=== PATIENT | male | born 1985 | race American Indian/Alaskan Native ===

== ENCOUNTER 2017-08-28 21:43 | Emergency (ER) | payer SELFPAY ==
[2017-08-28 22:47] LABS: Hematocrit 46.9 % (35.5-45.6); Hemoglobin 15.6 gm/dl (11.8-15.2); Mean Corpuscular HGB Conc 33 % (32-34); Mean Corpuscular Hemoglobin 32 pg (28-32); Mean Corpuscular Volume 96 fl (84-94); Platelet Count 299 K/mm3 (140-440); Red Blood Count 4.91 M/mm3 (3.65-5.03); Red Cell Distribution Width 13.6 % (13.2-15.2); White Blood Count 11.1 K/mm3 (4.5-11.0)
[2017-08-28 22:55] LABS: Bilirubin,Urine NEG (Negative); Blood,Urine SM (Negative); Ketones,Urine NEG (Negative); Leukocyte Esterase,Urine NEG (Negative); Mucus,Urine FEW /HPF; Nitrite,Urine NEG (Negative); Protein,Urine <15 mg/dL mg/dL (Negative); Urobilinogen,Urine < 2.0 mg/dL (<2.0)
[2017-08-28 23:06] LABS: Anion Gap 18 mmol/L; BUN/Creatinine Ratio 17; Blood Urea Nitrogen 12 mg/dL (9-20); Calcium 9.3 mg/dL (8.4-10.2); Carbon Dioxide 26 mmol/L (22-30); Chloride 100.7 mmol/L (98-107); Glucose 107 mg/dL (75-100); Lipase 54 units/L (13-60); Potassium 4.7 mmol/L (3.6-5.0); Sodium 140 mmol/L (137-145)
[2017-08-28 23:12] LABS: Basophils % (Manual) 0 % (0.0-1.8); Blastocytes % (Manual) 0 %; Eosinophils % (Manual) 0 % (0.0-4.3)
[2017-08-28 23:13] LABS: Anisocytosis Few; Diff Status Complete; Poikilocytosis Few
--- NOTE | 2017-08-29 03:48 | Emergency Department Report ---
HPI - General Chief Complaint: Abdominal Pain Time Seen by Provider: 08/29/17 03:34 - HPI HPI: Patient is a 31-year-old male presents to ED complaining of abdominal pain after eating spicy [place] chicken from a restaurant around 6 PM earlier today. Patient states he had one episode of vomiting has resolved now. Patient states he still has some abdominal pain that has decreased in intensity. Patient describes the pain as throbbing, crampy and aching in nature and localized to his lower abdominal region. Patient denies any radiation of the pain anywhere else He denies sick in medication or allergic to any meds. He denies fevers/chills/ nausea ED Past Medical Hx - Past Medical History Previous Medical History?: No - Surgical History Past Surgical History?: No - Medications Home Medications: Home Medications Medication Instructions Recorded Confirmed Last Taken Type Acetaminophen [Tylenol Extra 500 mg PO Q6H #30 tablet 08/29/17 Unknown Rx Strength] Famotidine [Pepcid] 20 mg PO BID #30 tablet 08/29/17 Unknown Rx Ondansetron [Zofran Odt] 4 mg PO Q8H #30 tab.rapdis 08/29/17 Unknown Rx ED Review of Systems ROS: Stated complaint: ABD PAIN Other details as noted in HPI Constitutional: denies: chills, fever Eyes: denies: eye pain, eye discharge, vision change ENT: denies: ear pain, throat pain Respiratory: denies: cough, shortness of breath, wheezing Cardiovascular: denies: chest pain, palpitations Endocrine: no symptoms reported Gastrointestinal: denies: abdominal pain, nausea, diarrhea Genitourinary: denies: urgency, dysuria Musculoskeletal: denies: back pain, joint swelling, arthralgia Skin: denies: rash, lesions Neurological: denies: headache, weakness, paresthesias Psychiatric: denies: anxiety, depression Hematological/Lymphatic: denies: easy bleeding, easy bruising Physical Exam - Physical Exam Vital Signs: Vital Signs 08/28/17 08/29/17 22:14 02:25 Temperature 99 F 98.7 F Pulse Rate 83 79 Respiratory 20 18 Rate Blood Pressure 140/80 139/83 O2 Sat by Pulse 99 100 Oximetry Physical Exam: GENERAL: Alert and oriented x3, no apparent distress, Normal Gait, atraumatic. HEAD: Head is normocephalic and a-traumatic. MOUTH:Mouth is well hydrated and without lesions. Tonsils nonerythematous or swollen, Uvula midline, Tongue not elevated. Mucous membranes are moist. Posterior pharynx clear, no exudate or lesions. Patent airways. NECK: Supple. Non edematous, No carotid bruits. No lymphadenopathy or thyromegaly. No C-spine tenderness LUNGS: Symetrical with respiration, No wheezing, no rales or crackles, CTAB. HEART: S1, S2 present, regular rate and rhythm without murmur, no rubs, no gallops. Non tender to palpation ABDOMEN: No organomegaly was noted,Positive bowel sounds, soft, and non- distended. Mild tenderness to palpation of the left middle quadrant. Nontender to palpation on all other Quadrants, NO CVA tenderness. BACK: Full range of motion, no spinal tenderness, nontender to palpation. SKIN: Warm and dry, No lesions, No ulceration or induration present. ED Course Vital Signs 08/28/17 08/29/17 22:14 02:25 Temperature 99 F 98.7 F Pulse Rate 83 79 Respiratory 20 18 Rate Blood Pressure 140/80 139/83 O2 Sat by Pulse 99 100 Oximetry ED Medical Decision Making - Lab Data Result diagrams: 08/28/17 22:40 08/28/17 22:40 Laboratory Last Values WBC 11.1 K/mm3 (4.5-11.0) H 08/28/17 22:40 RBC 4.91 M/mm3 (3.65-5.03) 08/28/17 22:40 Hgb 15.6 gm/dl (11.8-15.2) H 08/28/17 22:40 Hct 46.9 % (35.5-45.6) H 08/28/17 22:40 MCV 96 fl (84-94) H 08/28/17 22:40 MCH 32 pg (28-32) 08/28/17 22:40 MCHC 33 % (32-34) 08/28/17 22:40 RDW 13.6 % (13.2-15.2) 08/28/17 22:40 Plt Count 299 K/mm3 (140-440) 08/28/17 22:40 Add Manual Diff Complete 08/28/17 22:40 Total Counted 100 08/28/17 22:40 Seg Neuts % (Manual) 92.0 % (40.0-70.0) H 08/28/17 22:40 Band Neutrophils % 0 % 08/28/17 22:40 Lymphocytes % (Manual) 6.0 % (13.4-35.0) L 08/28/17 22:40 Reactive Lymphs % (Man) 0 % 08/28/17 22:40 Monocytes % (Manual) 2.0 % (0.0-7.3) 08/28/17 22:40 Eosinophils % (Manual) 0 % (0.0-4.3) 08/28/17 22:40 Basophils % (Manual) 0 % (0.0-1.8) 08/28/17 22:40 Metamyelocytes % 0 % 08/28/17 22:40 Myelocytes % 0 % 08/28/17 22:40 Promyelocytes % 0 % 08/28/17 22:40 Blast Cells % 0 % 08/28/17 22:40 Nucleated RBC % Not Reportable 08/28/17 22:40 Seg Neutrophils # Man 10.2 K/mm3 (1.8-7.7) H 08/28/17 22:40 Band Neutrophils # 0.0 K/mm3 08/28/17 22:40 Lymphocytes # (Manual) 0.7 K/mm3 (1.2-5.4) L 08/28/17 22:40 Abs React Lymphs (Man) 0.0 K/mm3 08/28/17 22:40 Monocytes # (Manual) 0.2 K/mm3 (0.0-0.8) 08/28/17 22:40 Eosinophils # (Manual) 0.0 K/mm3 (0.0-0.4) 08/28/17 22:40 Basophils # (Manual) 0.0 K/mm3 (0.0-0.1) 08/28/17 22:40 Metamyelocytes # 0.0 K/mm3 08/28/17 22:40 Myelocytes # 0.0 K/mm3 08/28/17 22:40 Promyelocytes # 0.0 K/mm3 08/28/17 22:40 Blast Cells # 0.0 K/mm3 08/28/17 22:40 WBC Morphology Not Reportable 08/28/17 22:40 Hypersegmented Neuts Not Reportable 08/28/17 22:40 Hyposegmented Neuts Not Reportable 08/28/17 22:40 Hypogranular Neuts Not Reportable 08/28/17 22:40 Smudge Cells Not Reportable 08/28/17 22:40 Toxic Granulation Not Reportable 08/28/17 22:40 Toxic Vacuolation Not Reportable 08/28/17 22:40 Dohle Bodies Not Reportable 08/28/17 22:40 Pelger-Huet Anomaly Not Reportable 08/28/17 22:40 Jas Rods Not Reportable 08/28/17 22:40 Platelet Estimate Appears normal 08/28/17 22:40 Clumped Platelets Not Reportable 08/28/17 22:40 Plt Clumps, EDTA Not Reportable 08/28/17 22:40 Large Platelets Not Reportable 08/28/17 22:40 Giant Platelets Not Reportable 08/28/17 22:40 Platelet Satelliting Not Reportable 08/28/17 22:40 Plt Morphology Comment Not Reportable 08/28/17 22:40 RBC Morphology Not Reportable 08/28/17 22:40 Dimorphic RBCs Not Reportable 08/28/17 22:40 Polychromasia Not Reportable 08/28/17 22:40 Hypochromasia Not Reportable 08/28/17 22:40 Poikilocytosis Few 08/28/17 22:40 Anisocytosis Few 08/28/17 22:40 Microcytosis Not Reportable 08/28/17 22:40 Macrocytosis Not Reportable 08/28/17 22:40 Spherocytes Not Reportable 08/28/17 22:40 Pappenheimer Bodies Not Reportable 08/28/17 22:40 Sickle Cells Not Reportable 08/28/17 22:40 Target Cells Not Reportable 08/28/17 22:40 Tear Drop Cells Not Reportable 08/28/17 22:40 Ovalocytes Not Reportable 08/28/17 22:40 Helmet Cells Not Reportable 08/28/17 22:40 [place] Bodies Not Reportable 08/28/17 22:40 [place] Rings Not Reportable 08/28/17 22:40 [place] Cells Not Reportable 08/28/17 22:40 Bite Cells Not Reportable 08/28/17 22:40 Crenated Cell Not Reportable 08/28/17 22:40 Elliptocytes Not Reportable 08/28/17 22:40 Acanthocytes (Spur) Not Reportable 08/28/17 22:40 Rouleaux Not Reportable 08/28/17 22:40 Hemoglobin C Crystals Not Reportable 08/28/17 22:40 Schistocytes Not Reportable 08/28/17 22:40 Malaria parasites Not Reportable 08/28/17 22:40 [place] Bodies Not Reportable 08/28/17 22:40 Hem Pathologist Commnt No 08/28/17 22:40 Sodium 140 mmol/L (137-145) 08/28/17 22:40 Potassium 4.7 mmol/L (3.6-5.0) 08/28/17 22:40 Chloride 100.7 mmol/L (98-107) 08/28/17 22:40 Carbon Dioxide 26 mmol/L (22-30) 08/28/17 22:40 Anion Gap 18 mmol/L 08/28/17 22:40 BUN 12 mg/dL (9-20) 08/28/17 22:40 Creatinine 0.7 mg/dL (0.8-1.5) L 08/28/17 22:40 Estimated GFR > 60 ml/min 08/28/17 22:40 BUN/Creatinine Ratio 17 % 08/28/17 22:40 Glucose 107 mg/dL (75-100) H 08/28/17 22:40 Calcium 9.3 mg/dL (8.4-10.2) 08/28/17 22:40 Amylase 120 units/L (27-131) 08/28/17 22:40 Lipase 54 units/L (13-60) 08/28/17 22:40 Urine Color Straw (Yellow) 08/28/17 Unknown Urine Turbidity Clear (Clear) 08/28/17 Unknown Urine pH 7.0 (5.0-7.0) 08/28/17 Unknown Ur Specific [place] 1.011 (1.003-1.030) 08/28/17 Unknown Urine Protein <15 mg/dl mg/dL (Negative) 08/28/17 Unknown Urine Glucose (UA) Neg mg/dL (Negative) 08/28/17 Unknown Urine Ketones Neg mg/dL (Negative) 08/28/17 Unknown Urine Blood Sm (Negative) 08/28/17 Unknown Urine Nitrite Neg (Negative) 08/28/17 Unknown Urine Bilirubin Neg (Negative) 08/28/17 Unknown Urine Urobilinogen < 2.0 mg/dL (<2.0) 08/28/17 Unknown Ur Leukocyte Esterase Neg (Negative) 08/28/17 Unknown Urine WBC (Auto) 1.0 /HPF (0.0-6.0) 08/28/17 Unknown Urine RBC (Auto) 3.0 /HPF (0.0-6.0) 08/28/17 Unknown Urine Mucus Few /HPF 08/28/17 Unknown - Radiology Data Radiology results: report reviewed, image reviewed Very small umbilical hernia containing omental fat, hernia measuring 15 medially meters in dimension no acute process in the abdomen and pelvis - Medical Decision Making 31-year-old male presents with gastroenteritis/food poisoning ED course: CBC, CMP, urinalysis and CT abdomen and pelvis completed. Patient was able to eat peanut butter and jelly sandwich, applesauce and juice in the ED. Patient reports feeling better no nausea symptoms of vomiting after eating. Discussed results of CT scan with the patient. Discussed with patient to follow up with primary care physician. Discussed the patient that if symptoms worsen to return to ED immediately. Vital signs are normal, patient is sleeping comfortably in the ED bed Patient is in no acute distress. Critical care attestation.: If time is entered above; I have spent that time in minutes in the direct care of this critically ill patient, excluding procedure time. ED Disposition Clinical Impression: Gastroenteritis due to food toxin Disposition: DC-01 TO HOME OR SELFCARE Is pt being admited?: No Does the pt Need Aspirin: No Condition: Stable Instructions: Soft Diet (ED), Gastroenteritis (ED), Food Poisoning (ED) Additional Instructions: Follow instructions as given symptoms worsen or new symptoms arise please return to ED. Soft diet recommended. No spicy foods Prescriptions: Acetaminophen [Tylenol Extra Strength] 500 mg PO Q6H #30 tablet Famotidine [Pepcid] 20 mg PO BID #30 tablet Ondansetron [Zofran Odt] 4 mg PO Q8H #30 tab.rapdis Referrals: PRIMARY CARE, [Primary Care Provider] - 3-5 Days [facility] [Outside] - 3-5 Days [facility] [Outside] - 3-5 Days [facility] [Outside] - 3-5 Days [facility] [Outside] - 3-5 Days Forms: Accompanied Note, Work/School Release Form(ED) Time of Disposition: 06:21
[2017-08-29] MEDS ORDERED: PEPCID PO ONE (03:56)
[2017-08-29] MEDS ORDERED: MOTRIN PO ONE (03:56)
[2017-08-29 05:26] VITALS: BP 134/79
--- NOTE | 2017-08-29 07:32 | Cat Scan Report ---
FINAL REPORT EXAM: CT ABD AND PELVIS WO CONTRAST HISTORY: umbilical pain TECHNIQUE: Routine axial imaging was obtained of the abdomen and pelvis without oral or IV contrast with sagittal and coronal reconstructions. FINDINGS: The lung bases are clear. Pleural fluid is not seen. The liver, gallbladder, pancreas, spleen, and adrenal glands appear normal. The kidneys show no evidence of stones or hydronephrosis. The bowel loops are normal in caliber and course. There is a very small umbilical hernia measuring 15 millimeters in dimension. The hernia contains only omental fat. The appendix appears normal. There is no evidence of free fluid or adenopathy. In the pelvis the prostate gland and bladder appear normal. The skeletal structures are well-maintained. IMPRESSION: Very small umbilical hernia containing omental fat. No acute process in the abdomen and pelvis.
== END 2017-08-29 06:28 | disposition home or self-care (01) ==
LOC: ED 21:43
DX: A05.9 Bacterial foodborne intoxication, unspecified (principal)
CPT/HCPCS: 36415; 74176; 80048; 81001; 82150; 83690; 85007; 85025; 99284

== ENCOUNTER 2017-12-23 06:42 | Emergency (ER) | payer SELFPAY ==
[2017-12-23 07:19] VITALS: BP 116/78
[2017-12-23] MEDS ORDERED: FIORICET PO ONE (08:52)
--- NOTE | 2017-12-23 09:50 | Emergency Department Report ---
HPI - General Chief Complaint: Eye Problems Time Seen by Provider: 12/23/17 08:29 - HPI HPI: Patient is a 32-year-old male with no prominent medical history presents to ED complaining of left eye twitch intermittently for the past 2 months. Patient also states he developed a chin rash on his lower lip area yesterday. Patient denies any injury, taken the medication, and allergies. He states sometimes his dictation in the left side causing some mild left migraine headache. ED Past Medical Hx - Past Medical History Hx Asthma: Yes - Medications Home Medications: Home Medications Medication Instructions Recorded Confirmed Last Taken Type Acetaminophen [Tylenol Extra 500 mg PO Q6H #30 tablet 08/29/17 Unknown Rx Strength] Famotidine [Pepcid] 20 mg PO BID #30 tablet 08/29/17 Unknown Rx Ondansetron [Zofran Odt] 4 mg PO Q8H #30 tab.rapdis 08/29/17 Unknown Rx Acyclovir [Zovirax] 1 applic TP TID #1 tube 12/23/17 Unknown Rx Prochlorperazine [Compazine] 10 mg PO Q8HR #30 tablet 12/23/17 Unknown Rx diphenhydrAMINE [Benadryl CAP] 25 mg PO QHS #20 capsule 12/23/17 Unknown Rx ED Review of Systems ROS: Stated complaint: LEFT EYE PAIN Other details as noted in HPI Constitutional: denies: chills, fever Eyes: denies: eye pain, eye discharge, vision change ENT: denies: ear pain, throat pain Respiratory: denies: cough, shortness of breath, wheezing Cardiovascular: denies: chest pain, palpitations Endocrine: no symptoms reported Gastrointestinal: denies: abdominal pain, nausea, diarrhea Genitourinary: denies: urgency, dysuria Musculoskeletal: denies: back pain, joint swelling, arthralgia Skin: denies: rash, lesions Neurological: denies: headache, weakness, paresthesias Psychiatric: denies: anxiety, depression Hematological/Lymphatic: denies: easy bleeding, easy bruising Physical Exam - Physical Exam Vital Signs: Vital Signs 12/23/17 07:16 Temperature 98.2 F Pulse Rate 78 Respiratory 14 Rate Blood Pressure 116/78 O2 Sat by Pulse 96 Oximetry Physical Exam: GENERAL: Alert and oriented x3, no apparent distress, Normal Gait, atraumatic. HEAD: Head is normocephalic and a-traumatic. EYE: Nonedematous, no lesions, no conjunctivitis noted, EEOM intact bilaterally , PERRLA MOUTH:Mouth is well hydrated and without lesions. Tonsils nonerythematous or swollen, Uvula midline, Tongue not elevated. Mucous membranes are moist. Posterior pharynx clear, no exudate or lesions. Patent airways. Raised, bumpy- like lesions on lower lip left sided LUNGS: Symetrical with respiration, No wheezing, no rales or crackles, CTAB. HEART: S1, S2 present, regular rate and rhythm without murmur, no rubs, no gallops. Non tender to palpation EXTREMITIES/MUSCULOSKELETAL: No cyanosis, clubbing, rash, lesions or edema. Full ROM bilaterally. NEUROLOGIC: The patient is cooperative with no focal neurologic deficits. Normal speech. Normal sensation in bilateral upper and lower extremities, No loss of sensation, SKIN: Warm and dry, No lesions, No ulceration or induration present. ED Course Vital Signs 12/23/17 07:16 Temperature 98.2 F Pulse Rate 78 Respiratory 14 Rate Blood Pressure 116/78 O2 Sat by Pulse 96 Oximetry ED Medical Decision Making - Medical Decision Making 32-year-old male presents with cold sores to the lip ED course: Patient received Fioricet and Benadryl for headache and itching Discussed the patient to follow-up with neurology as referred his eye twitching or headaches persist Vital signs are stable patient is in no acute distress Discussed the patient to follow up with his regular physician or as referred. Discussed with take and use medication as prescribed. I discussed the patient if any worsening symptoms or new onset of symptoms to return to ED immediately Patient has no neurologic deficit. He is neurologically intact. Critical care attestation.: If time is entered above; I have spent that time in minutes in the direct care of this critically ill patient, excluding procedure time. ED Disposition Clinical Impression: Cold sore, Eye muscle twitches Disposition: DC-01 TO HOME OR SELFCARE Is pt being admited?: No Does the pt Need Aspirin: No Condition: Stable Instructions: Acute Headache (ED), Ocular Migraine (ED) Additional Instructions: Make sure to follow up with the primary care physician as discussed. Take all your medications as you've been prescribed. Follow-up with neurology as discussed his headache persist or arts which in persist If you have any worsening symptoms or develop new symptoms please return to ED immediately. Prescriptions: diphenhydrAMINE [Benadryl CAP] 25 mg PO QHS #20 capsule Acyclovir [Zovirax] 1 applic TP TID #1 tube Prochlorperazine [Compazine] 10 mg PO Q8HR #30 tablet Referrals: PRIMARY CAREMD [Primary Care Provider] - 3-5 Days [facility] [Outside] - 3-5 Days [facility] [Outside] - 3-5 Days [facility] [Outside] - 3-5 Days SOFIA BARILLAS MD [Staff Physician] - 3-5 Days Forms: Accompanied Note, Work/School Release Form(ED) Time of Disposition: 10:02
[2017-12-23] MEDS ORDERED: BENADRYL PO ONE (09:54)
== END 2017-12-23 10:14 | disposition home or self-care (01) ==
LOC: ED 06:42
DX: B00.1 Herpesviral vesicular dermatitis (principal); H57.8 Other specified disorders of eye and adnexa; J45.909 Unspecified asthma, uncomplicated
CPT/HCPCS: 99282